=== PATIENT | male | born 1935 | race Caucasian/White ===

== ENCOUNTER 2022-03-30 10:48 | Observation (INO) | payer MEDICARE, OTHER, SELFPAY ==
[2022-03-30] VITALS (34 sets, daily range): BP systolic 63–101; BP diastolic 40–73; PULSE 79–107; RESP 13–26; TEMP 36.3–36.4; O2SAT 68–100; BMI 24.2
--- NOTE | ~2022-03-30 | US_ITS ---
EXAMINATION: US renal BI DATE: 03/31/2022 09:19 INDICATION: Acute kidney injury TECHNIQUE: Multiple grayscale and Doppler ultrasound images of the kidneys were obtained. COMPARISON: None. FINDINGS: The right kidney measures 11.4 x 4.4 x 5.1 cm. The left kidney measures 10.9 x 4.5 x 5.2 cm . The kidneys demonstrate normal parenchymal echogenicity. There is no hydronephrosis. The bladder is decompressed by Hobbs catheter. IMPRESSION: 1. Normal kidneys without hydronephrosis. Reviewed, dictated and finalized at location A. SELLER
--- NOTE | ~2022-03-30 | CT_ITS ---
EXAMINATION: CT abdomen pelvis wo con DATE: 03/30/2022 12:13 INDICATION: Abdominal pain TECHNIQUE: Computed tomography (CT) of the abdomen and pelvis was performed without intravenous contr ast. The dose-length product (DLP) was 763.82 mGy-cm. Automated exposure control and iterative recons truction technique were employed. COMPARISON: None FINDINGS: Minimal dependent atelectasis is present in the lung bases. The heart size is normal. There is moderate asymmetric gynecomastia on the right. Calcified coronary artery atherosclerosis is noted . The liver, pancreas, gallbladder, and adrenal glands are normal. There is a 2.9 cm cyst of the left kidney. The right kidney is unremarkable. Punctate calcifications in an otherwise normal spleen like ly represent healed granulomatous disease. 2.9 cm cyst of the left kidney. No pathologically enlarged abdominal or pelvic lymph nodes are identified. There is calcified atherosclerosis of the aorta and many of the other arteries. There is circumferential wall thickening of the descending and sigmoid co sarah as well as the rectum. There is severe lumbar spondylosis. IMPRESSION: 1. Colonic wall thickening from the descending colon to the rectum, consistent with colitis. Reviewed, dictated and finalized at location A. CROPS TEACHER
--- NOTE | ~2022-03-30 | XR_ITS ---
EXAMINATION: XR chest 1V portable INDICATION: Hypotension TECHNIQUE: Portable AP chest at 1219 hours COMPARISON: None available FINDINGS: There is mild atelectasis of the lung bases. No pleural effusion or pneumothorax. Cardiomeg annabelle is noted. There are changes of prior cardiac surgery. A dual-lead cardiac pacemaker of the left c hest wall ends with leads in expected locations. IMPRESSION: 1. Mild atelectasis of the lung bases. Reviewed, dictated and finalized at location A. TH/SAFETY JOB TITLES
--- NOTE | 2022-03-30 10:48 | ECG_ITS ---
Measurements Intervals Jamul Rate: 95 P: OR: 0 QRS: -47 QRSD: 105 T: 122 QT: 371 QTc: 467 Interpretive Statements LIKELY SINUS RHYTHM WITH ABERRANT CONDUCTION OR VENTRICULAR PREMATURE COMPLEXES LEFT ANTERIOR FASCICULAR BLOCK [QRS AXIS <= -45, QR IN I, RS IN II] SEPTAL MYOCARDIAL INFARCTION , PROBABLY OLD [40+ ms Q WAVE IN V1/V2] NO PREVIOUS ECG AVAILABLE FOR COMPARISON Electronically Signed On 03-30-2022 16:35:48 AUTOMOTIVE CUSTOMER EXPERIENCE ADVISOR by Francis Hall M.D.
[2022-03-30] MEDS: SODIUM CHLORIDE 0.9% IV 1,000 ML 999 ML IV CONT (11:22)
[2022-03-30 11:25] LABS: Basophils Absolute Auto 0.1 K/mm3 (0.0-0.1); Basophils Percent Auto 0.7 % (0.2-1.2); Eosinophils Absolute Auto 0.1 K/mm3 (0-0.3); Eosinophils Percent Auto 0.4 % (0-4.4); Hematocrit 39.2 % (42.0-52.0); Hemoglobin 13.6 g/dL (14.0-18.0); Immature Granulocyte Absolute 0.33 K/mm3 (0.00-0.031); Immature Granulocyte Percent A 1.7 % (0-0.5); Lymphocytes Absolute Auto 1.79 K/mm3 (0.9-3.2); Lymphocytes Percent Auto 9.2 % (18.3-44.2); Mean Corpuscular HGB Conc 34.7 g/dl (32-36); Mean Platelet Volume 10.5 fl (7.4-10.4); Monocytes Absolute Auto 2.2 K/mm3 (0.1-0.6); Monocytes Percent Auto 11.5 % (2.6-8.5); Neutrophils Absolute Auto 14.9 K/mm3 (1.3-6.7); Neutrophils Percent Auto 76.5 % (45.5-73.1); Platelet Count Result 333 k/mm3 (150-375); Red Cell Distribution Width 12.8 % (11.5-14.5); White Blood Count 19.5 K/mm3 (4.5-10.0)
[2022-03-30 11:27] LABS: Add Urine Microscopic? YES; Appearance Urine Clear (Clear); Bilirubin Urine Negative (Negative); Blood Urine 1+ (Negative); Color Urine Yellow (Yellow); Glucose Urine UA Negative (Negative); Ketones Urine Negative (Negative); Leukocyte Esterase Ur Negative LEU/UL (Negative); Nitrate Urine Negative (Negative); Protein Urine Trace mg/dL (Negative); Urobilinogen Urine 0.2 mg/dL (<2.0)
[2022-03-30] MEDS: Please add drug allergy info to patient profile. 1 EACH XX (11:28)
[2022-03-30 11:35] LABS: Alanine Aminotransferase 23 U/L (6-50); Albumin Level 2.8 g/dL (3.5-5.1); Alkaline Phosphatase 66 U/L (38-126); Anion Gap 13 mmol/L (8-16); Aspartate Amino Transferase 32 U/L (17-59); Bilirubin,Total 1.2 mg/dL (0.2-1.3); Blood Urea Nitrogen 68 mg/dL (9-20); Calcium 7.9 mg/dL (8.4-10.2); Carbon Dioxide 26 mmol/L (22-30); Chloride 95 mmol/L (98-107); Estimated CRCL calculation 13 ml/min; Estimated Glomerular Filt Rate 17; Glucose 110 mg/dL (65-110); Potassium 3.3 mmol/L (3.4-5.0); Sodium 134 mmol/L (137-145)
[2022-03-30 11:36] LABS: INR 2.6; Prothrombin Time 27.3 Seconds (11.1-14.7)
[2022-03-30 11:37] LABS: Partial Thromboplastin Time 36.1 SECONDS (22.3-36.8)
--- NOTE | 2022-03-30 11:51 | ED.GENADULT ---
HPI - General Adult General Chief complaint: Weakness Stated complaint: lethargic, weak, low bp 61/29 History of Present Illness HPI narrative: 87-year-old male with history of dementia with a baseline status of AO x1 presenting the emergency department for evaluation of increased lethargy. group home staff went to check on the patient and he was found to have increased somnolence. Patient's blood pressure at the senior care was 60 systolic. Patient did receive 1.5 L of lactated Ringer's by EMS. Patient was then started on normal saline emergency room. Patient's blood pressure does improve with IV fluids. With both the patient's son who is the POA and the patient's daughter who is present in the emergency department and they confirmed that the patient does not have a quality of life that the patient would want to be sustained. Patient is DNI DNR and family is considering comfort care. At this time they do not want the patient to have a central line or to be placed on pressors. Related Data Home Medications Medication Instructions Recorded Confirmed apixaban 5 mg tablet (Eliquis) mg 03/30/22 atorvastatin 10 mg tablet mg 03/30/22 furosemide 40 mg tablet mg 03/30/22 lisinopril 5 mg tablet 10 mg 03/30/22 metoprolol succinate 200 mg mg PO 03/30/22 tablet,extended release 24 hr Allergies Allergy/AdvReac Type Severity Reaction Status Date / Time No Known Allergies Allergy Verified 03/30/22 11:21 Review of Systems Review of Systems: Review of systems was difficult due to patient's decreased responsiveness. Patient does complain of left shoulder pain which is chronic per family and patient is also complaining of abdominal pain which may be acute. ROS unobtainable: Yes unobtainable due to medical condition [facility] Surgical History Surgical History (Updated 03/30/22 @ 16:53 by Snow Chavez PA-C) History of coronary artery bypass graft History of permanent cardiac pacemaker placement History of shoulder surgery Exam Narrative: APPEARANCE: Somnolent and ill-appearing HEAD: normocephalic, atraumatic. EYES: PERRLA/EOMI, conjunctivae clear. NOSE: Normal no drainage EARS:TMS clear with good light reflex. THROAT: Pharynx clear, no exudate. Mouth was very dry NECK: Supple. No adenopathy, no masses. RESPIRATORY: Airway patent, respirations nonlabored. Clear to auscultation bilaterally, no rales, rhonchi, wheezing. CARDIOVASCULAR: Regular rate and rhythm without murmurs rubs or gallops. ABDOMINAL: Soft, nontender, nondistended, normal bowel sounds MUSCULOSKELETAL: Moves all extremities. Strength/ROM intact, No edema, No calf tenderness. NEURO: Cranial nerves II through XII intact. Grossly intact SKIN: Warm, dry. Normal Color Course Course Emergency Course: Family confirmed that the patient is DNI DNR and they do not want to pursue aggressive measures such as a central line. They were comfortable with treating the patient with IV fluids and antibiotics. Patient's blood pressure did improve with rehydration. CT scan showed evidence of colitis and patient was treated with Cipro and Flagyl. Patient's C. difficile study came back and was positive. Patient was too somnolent at that time to have p.o. vancomycin. Patient does have a leukocytosis of 19.5. Patient does have a suspected new MELINDA of 3.4 for his creatinine. UA shows no evidence of urinary tract infection. Patient was negative for influenza and COVID. Case was discussed with hospitalist patient was accepted for admission. While patient is DNI DNR he is not yet comfort care. Patient will be admitted to the IMU. Vital Signs Vital signs: Vital Signs Pulse Rate 96 03/30/22 10:49 Respiratory Rate 20 03/30/22 10:49 Blood Pressure 85/53 L 03/30/22 10:49 Pulse Oximetry 96 03/30/22 10:49 Oxygen Delivery Room Air 03/30/22 10:49 Temperature 97.3 F L 03/30/22 14:02 Pulse Rate 99 03/30/22 18:46 Respiratory Rate 22 H 03/30/22 18:4
[2022-03-30 11:56] LABS: Hyaline Casts Urine 30-49 /lpf; Mucus Urine Rare /lpf; RBC Urine 0-2 /hpf (0-2); Squamous Epithelial Cell Urine Rare /hpf (Few); WBC Urine 0-3 /hpf
[2022-03-30 11:59] LABS: Influenza A QL RT-PCR Negative (Negative); Influenza B QL RT-PCR Negative (Negative); RSV RNA, RT-PCR Negative (Negative); SARS-CoV-2 RNA PCR Negative
[2022-03-30] MEDS: SODIUM CHLORIDE 0.9% IV 1,000 ML 250 ML IV CONT (12:53)
[2022-03-30] MEDS: metroNIDAZOLE 500 MG/ISO 100ML 500 MG/100 ML BAG 100 MG IVPB (12:54)
[2022-03-30] MEDS: CIPROFLOXACIN 400 MG/D5W 200ML 200 ML 200 MG IVPB (13:53)
[2022-03-30 14:56] LABS: Toxigenic C. Diff POSITIVE (NEGATIVE)
--- NOTE | 2022-03-30 16:30 | PM.IMHP ---
H&P: HPI History of Present Illness Date/Time: 03/30/22 16:30 Chief Complaint: Unresponsive this morning. Narrative: This is an 87-year-old male with dementia, paroxysmal atrial fibrillation, hypertension, coronary artery disease, and hyperlipidemia who presented to the emergency department via EMS from [facility] for evaluation after he was found unresponsive this morning. He answers a few of my questions but cannot provide an accurate history and as such almost all all of the following is obtained via a review of his electronic medical records as well as information obtained from family members. It is my understanding that with [facility] staff went to check on him that he was unresponsive and his blood pressures were in the 60s systolic. EMS was summoned on their arrival he was concerned hypotensive for which he was given a 1.5 liter bolus of lactated Ringer's in route to the hospital. Temperature was 97.3? F on arrival and his blood pressures have been persistently in 80s to 90 systolic. Workup was significant for a WBC of 19.5, mild electrolyte abnormalities, and BUN and creatinine of [address] of the abdomen and pelvis showed colonic wall thickening from the descending colon to the rectum consistent with colitis and a subsequent stool study was positive for C diff. He is being admitted in this setting for IV fluid rehydration antibiotics. Family members confirm that the patient is a DNR/DNI and they have declined central line insertion and pressors. Depending on how he does overnight they are considering comfort measures. At the time my evaluation the patient is asleep but does arouse to name. He indicates that he is having some abdominal discomfort but he is not able to qualify. He voiced no other complaints though he did not answer a majority of the questions asked of him. As I was leaving the room he told me ?I think I am going to pull through this. ? Review of Systems Review of Systems: A review of systems was attempted but significantly limited and unable to be completed accurately as he did not answer majority of my questions. [facility] Past Medical History Medical History (Updated 03/30/22 @ 23:20 by Snow Chavez PA-C) Chronic anticoagulation Coronary artery disease Dementia Hyperlipidemia Hypertension Paroxysmal atrial fibrillation Surgical History Surgical History (Updated 03/30/22 @ 16:53 by Snow Chavez PA-C) History of coronary artery bypass graft History of permanent cardiac pacemaker placement History of shoulder surgery Family History Family History (Updated 03/30/22 @ 23:13 by Snow Chavez PA-C) Other Family history unknown Social History Social History (Updated 03/30/22 @ 23:14 by Snow Chavez PA-C) Social History: Currently at [facility]. Unable to confirm or deny alcohol, tobacco, or drug use. Bibiana Brooks (daughter) and Josafat Heller (son) are emergency contacts. Code status: Do not resuscitate. Meds Home Medications and Allergies Home Medications Medication Instructions Recorded Confirmed Type apixaban 5 mg tablet (Eliquis) 5 mg PO BID 03/30/22 03/30/22 History atorvastatin 10 mg tablet 10 mg PO HS 03/30/22 03/30/22 History furosemide 40 mg tablet 40 mg PO BID 03/30/22 03/30/22 History lisinopril 5 mg tablet 5 mg PO DAILY 03/30/22 03/30/22 History metoprolol succinate 200 mg 200 mg PO DAILY 03/30/22 03/30/22 History tablet,extended release 24 hr Allergies Allergy/AdvReac Type Severity Reaction Status Date / Time No Known Allergies Allergy Verified 03/30/22 11:21 Vital Signs Vital Signs - 24 hr 03/30/22 10:49 03/30/22 11:23 03/30/22 11:48 Temperature Pulse Rate 96 90 95 Respiratory Rate 20 17 13 Blood Pressure 85/53 L 78/56 L 93/64 L Pulse Oximetry 96 93 Oxygen Delivery Room Air 03/30/22 11:48 03/30/22 11:31 03/30/22 11:46 Temperature Pulse Rate 86 92 87 Respiratory Rate 1
--- NOTE | 2022-03-30 17:03 | PC.NURSE ---
Pt incontinent of bowel and bladder. Depends and linens changed. Pt repositioned.
--- NOTE | 2022-03-30 18:50 | PC.NURSE ---
Called pt's son Josafat with updates. No questions or concerns at this time. Encouraged him to call if he hasn't heard from us.
--- NOTE | 2022-03-30 23:16 | ADMGEN ---
This patient, Kameron Heller, was admitted to IMU Room 201-01. Patient/family oriented to hospital policies and general routines including ID bracelet, bed and alarms, visiting hours, pain management, procedures, bathroom and other care routines, personal items, smoking policy, room service/diet, and visiting hours. Information on how to activate the Rapid Response Team has been discussed. Patient/Family are encouraged to report perceived risks to care and to ask questions if they do not understand what they are told or what they should do.
[2022-03-31] VITALS (7 sets, daily range): BP systolic 88–98; BP diastolic 52–68; PULSE 90–122; RESP 16–20; TEMP 36.2–36.7; O2SAT 96–100; BMI 24.2
[2022-03-31] MEDS: LACTATED RINGERS 1,000 ML 150 ML IV CONT ×2 (00:10→09:32)
[2022-03-31] MEDS: VANCOMYCIN ORAL 500 MG/10 ML SYRUP PO ×3 (00:11→11:10)
[2022-03-31] MEDS: APIXABAN 5 MG TABLET PO ×2 (00:11→09:33)
[2022-03-31] MEDS: metroNIDAZOLE 500 MG/ISO 100ML 500 MG/100 ML BAG 100 MG IVPB ×2 (00:11→09:32)
[2022-03-31 00:15] LABS: Anion Gap 10 mmol/L (8-16); Blood Urea Nitrogen 61 mg/dL (9-20); Calcium 7.7 mg/dL (8.4-10.2); Carbon Dioxide 23 mmol/L (22-30); Chloride 98 mmol/L (98-107); Estimated CRCL calculation 19 ml/min; Estimated Glomerular Filt Rate 26; Glucose 94 mg/dL (65-110); Potassium 2.8 mmol/L (3.4-5.0); Sodium 131 mmol/L (137-145)
[2022-03-31] MEDS: POTASSIUM CHLORIDE INJ 40 MEQ in SODIUM CHLORIDE 0.9% IV 500 ML 130 MEQ IVPB (01:18)
[2022-03-31 06:59] LABS: Hemoglobin 13.9 g/dL (14.0-18.0); Mean Corpuscular HGB Conc 33.9 g/dl (32-36); Mean Corpuscular Hemoglobin 33.5 pg (26-34); Mean Corpuscular Volume 98.8 fl (80-100); Mean Platelet Volume 10.5 fl (7.4-10.4); Platelet Count Result 349 k/mm3 (150-375); Red Blood Count 4.15 M/mm3 (4.6-6.20); Red Cell Distribution Width 12.8 % (11.5-14.5); White Blood Count 16.8 K/mm3 (4.5-10.0)
[2022-03-31 07:17] LABS: Alanine Aminotransferase 22 U/L (6-50); Albumin Level 2.8 g/dL (3.5-5.1); Alkaline Phosphatase 73 U/L (38-126); Anion Gap 9 mmol/L (8-16); Aspartate Amino Transferase 42 U/L (17-59); Bilirubin,Total 0.8 mg/dL (0.2-1.3); Blood Urea Nitrogen 58 mg/dL (9-20); Calcium 9.1 mg/dL (8.4-10.2); Carbon Dioxide 25 mmol/L (22-30); Chloride 99 mmol/L (98-107); Estimated CRCL calculation 22 ml/min; Estimated Glomerular Filt Rate 32; Glucose 102 mg/dL (65-110); Magnesium 1.9 mg/dL (1.6-2.3); Potassium 3.1 mmol/L (3.4-5.0); Sodium 133 mmol/L (137-145)
--- NOTE | 2022-03-31 14:03 | PM.DS ---
DS: Admitting Diagnosis Discharge Date 03/31/2022 Admitting Diagnosis Altered mental status DS: Discharge Diagnosis Discharge Diagnosis (1) Septic shock: Code(s): A41.9 - Sepsis, unspecified organism; R65.21 - Severe sepsis with septic shock Status: Acute (2) C. difficile colitis: Code(s): A04.72 - Enterocolitis due to Clostridium difficile, not specified as recurrent Status: Acute (3) Acute kidney injury: Code(s): N17.9 - Acute kidney failure, unspecified Status: Acute (4) Electrolyte abnormality: Code(s): E87.8 - Other disorders of electrolyte and fluid balance, not elsewhere classified Status: Acute (5) Paroxysmal atrial fibrillation: Code(s): I48.0 - Paroxysmal atrial fibrillation Status: Acute (6) Chronic anticoagulation: Code(s): Z79.01 - ferry terminal supervisor (current) use of anticoagulants Status: Acute (7) Hypertension: Code(s): I10 - Essential (primary) hypertension Status: Acute DS: Summary Hospital Course Reason for hospitalization: This is an 87-year-old male with dementia, paroxysmal atrial fibrillation, hypertension, coronary artery disease, and hyperlipidemia who presented to the emergency department via EMS from [facility] for evaluation after he was found unresponsive this morning. He answers a few of my questions but cannot provide an accurate history and as such almost all all of the following is obtained via a review of his electronic medical records as well as information obtained from family members. It is my understanding that [facility] to [facility] him that he was unresponsive and his blood pressures were in the 60s systolic. EMS was summoned on their arrival he was concerned hypotensive for which he was given a 1.5 liter bolus of lactated Ringer's in route to the hospital. Temperature was 97.3? F on arrival and his blood pressures have been persistently in 80s to 90 systolic. Workup was significant for a WBC of 19.5, mild electrolyte abnormalities, and BUN and creatinine of [address] of the abdomen and pelvis showed colonic wall thickening from the descending colon to the rectum consistent with colitis and a subsequent stool study was positive for C diff.? He is being admitted in this setting for IV fluid rehydration antibiotics. Family members confirm that the patient is a DNR/DNI and they have declined central line insertion and pressors. Depending on how he does overnight they are considering comfort measures. At the time my evaluation the patient is asleep but does arouse to name.? He indicates that he is having some abdominal discomfort but he is not able to qualify. He voiced no other complaints though he did not answer a majority of the questions asked of him. As I was leaving the room he told me ?I think I am going to pull through this. ? Hospital Course: # septic shock: Likely related to colitis. C diff came back positive. Blood pressure low. Family has declined central line placement or vasopressor treatment. Further discussion with hospice with hospice enrollment. Back to nursing facility where his decides to continue on hospice care/end of life care # C diff colitis was started on vancomycin oral metronidazole which will be stopped at discharge # MELIDNA related to above. # hyponatremia/hypokalemia # history of proximal atrial fibrillation # chronic anticoagulation with apixaban which will be stopped at discharge # hypertension on medication at home which will be stopped at discharge # acute encephalopathy: Lorazepam p.r.n. until hospice team will see/evaluated in a.m. Time Spent with Patient Time attestation: Total time spent providing and/or coordinating discharge services: 40 minutes Exam Narrative: APPEARANCE: Somnolent and ill-appearing verbalizes some HEAD: normocephalic, atraumatic. EYES: PERRLA/EOMI, conjunctivae clear. NECK: Supple. No adenopathy, no masses
== END 2022-03-31 18:23 | disposition hospice, home (50) ==
LOC: ANHED 13:24 → ANH3MEDSUR 16:00 → ANHIMU 19:42
PROVIDERS: Physician Assistant; Admitting Provider Internal Medicine; Emergency Provider Emergency Medicine; PCP Internal Medicine; Visit Provider Internal Medicine
DX: A41.9 Sepsis, unspecified organism (principal); A04.72 Enterocolitis due to Clostridium difficile, not specified as recurrent; B96.89 Other specified bacterial agents as the cause of diseases classified elsewhere; N17.9 Acute kidney failure, unspecified; E87.8 Other disorders of electrolyte and fluid balance, not elsewhere classified; I48.0 Paroxysmal atrial fibrillation; I10 Essential (primary) hypertension; R40.0 Somnolence; I95.9 Hypotension, unspecified; I44.4 Left anterior fascicular block; Z95.0 Presence of cardiac pacemaker; I25.2 Old myocardial infarction; J98.11 Atelectasis; E78.5 Hyperlipidemia, unspecified; F03.90 Unspecified dementia, unspecified severity, without behavioral disturbance, psychotic disturbance, mood disturbance, and anxiety; Z20.822 Contact with and (suspected) exposure to COVID-19; Z66 Do not resuscitate; I25.10 Atherosclerotic heart disease of native coronary artery without angina pectoris; Z95.1 Presence of aortocoronary bypass graft; Z79.01 Long term (current) use of anticoagulants; Z79.899 Other long term (current) drug therapy
CPT/HCPCS: 36415; 51701; 71045; 74176; 76775; 80048; 80053; 81001; 83735; 85025; 85027; 85610; 85730; 87040; 87045; 87269; 87272; 87427; 87493; 87637; 89055; 93005; 96361; 96365; 96366; 96367; 96375; 96376; 99285; A9270; G0378; J0744; J3480; J7030; J7040; J7120